=== PATIENT | female | born 1990 | race African-American/Black ===

== ENCOUNTER 2016-12-29 15:35 | Emergency (ER) | payer MEDICAID ==
[~2016-12-29] VITALS: Ht 167.6 cm; Wt 81.6 kg
[~2016-12-29 15:35] MED LIST: ABILIFY5 M1 PO; ADV500/50; ADVAIR DISKUS 51 AER INH; ALBUTEROL1.25 MG/3 NEB; ALL60 PO; ALLEGRA60 MG PO; BACITRACIN500 U/G2 TOP; BACO TOP; BACTROBAN2% TP; BACTROBAN22 TOP; COG1 PO; DULERA1 AR2 INH; HIB240 TP; HIBICLENS118 ML TOP; LATUDA40 M1; LATUDA40 M1 PO; LEVAQUIN750 MG PO; MEDDP PO; NORCO1 TA1 PO; PRE20 PO; PREDNISONE20 MG PO; PROINH INH; PROVENTIL0.09 MG/A1 IH; PROVENTIL0.09 MG/A1 INH; SEROQUEL25 MG PO; SING10 PO; SINGULAIR10 MG PO; SPIRIVA18 MC1 INH; THEOPHYLLINE PO; VENTOLIN H0.09 MG/A1 IH; XOP1.25; [UNRECOGNIZED DRUG - CODE] PO
[2016-12-29 19:22] VITALS: BP 116/63
== END 2016-12-29 19:22 | disposition home or self-care (01) ==
LOC: ED 15:35
DX: J02.9 Acute pharyngitis, unspecified (principal); J45.901 Unspecified asthma with (acute) exacerbation; F41.9 Anxiety disorder, unspecified; F31.9 Bipolar disorder, unspecified; F99 Mental disorder, not otherwise specified; Z91.010 Allergy to peanuts; Z88.6 Allergy status to analgesic agent
CPT/HCPCS: J0696; J7512; J7613; J7644; Q0092

== ENCOUNTER 2017-01-11 13:50 | Emergency (ER) | payer MEDICAID ==
[~2017-01-11] VITALS: Ht 167.6 cm; Wt 89.5 kg
[2017-01-11 16:15] VITALS: BP 114/82
== END 2017-01-11 16:16 | disposition home or self-care (01) ==
LOC: ED 13:50
DX: J45.901 Unspecified asthma with (acute) exacerbation (principal); R06.02 Shortness of breath; Z79.899 Other long term (current) drug therapy; Z88.8 Allergy status to other drugs, medicaments and biological substances
CPT/HCPCS: J1885; J7512; J7613; J7644

== ENCOUNTER 2017-05-23 22:50 | Inpatient (IN) | payer MEDICAID ==
[~2017-05-23] VITALS: Ht 165.1 cm; Wt 72.6 kg
--- NOTE | 2017-05-23 23:15 | NUR ---
LAB AT BEDSIDE FOR BLOOD DRAW.
--- NOTE | 2017-05-23 23:15 | NUR ---
RT AT BEDSIDE FOR BLOOD DRAW.
--- NOTE | 2017-05-23 23:29 | NUR ---
PT TO ED WITH C/O DANIELLE LOWER EXTREMITIES SWELLING AND SOB SINCE 6AM TODAY. PER PT, PT WITH HX OF ASTHMA EXACERBATION WHICH HAS LED TO INTUBATION MULTIPLE TIMES. PT STATES PRIOR TO 6AM ALL WNL. PT A&OX4,NO ACUTE DISTRESS NOTED, RESP EVEN AND UNLABORED AT THIS TIME. PT WITH AUDIBLE WHEEZING NOTED. PT SITTING UP IN BED, ABG AND EKG BEING COMPLETED AT THE BEDSIDE.
[2017-05-23 23:32] LABS: BASOPHIL % 0.4 % (0-2); PLATELET COUNT 265 x10^3mcL (130-400)
[2017-05-23 23:34] LABS: RED CELL DISTRIBUTION WIDTH 15.3 % (11.5-14.5)
[2017-05-23 23:39] LABS: CALCIUM 9.1 mg/dL (8.5-10.1); CARBON DIOXIDE 29.8 mmol/L (21-32); CHLORIDE SERUM 104 mmol/L (98-107); CREATININE SERUM 0.9 mg/dL (0.6-1.0); GFR1 > 60 mL/min; GLUCOSE SERUM 102 mg/dL (74-106); POTASSIUM SERUM 3.1 mmol/L (3.5-5.1); SODIUM SERUM 139 mmol/L (136-145)
--- NOTE | 2017-05-23 23:39 | NUR ---
RT AT BEDSIDE FOR ABG.
--- NOTE | 2017-05-23 23:44 | NUR ---
RT AT BEDSIDE FOR BREATHING TREATMENT.
[2017-05-23 23:46] LABS: ALBUMIN 3.5 g/dL (3.4-5.0); ALKALINE PHOSPHATASE 48 U/L (46-116); ALT/SGPT 13 U/L (14-59); AST/SGOT 11 U/L (15-37); TOTAL PROTEIN, SERUM 7.4 g/dL (6.4-8.2)
[2017-05-24] VITALS (7 sets, daily range): BP systolic 98–117; BP diastolic 49–60
--- NOTE | 2017-05-24 00:24 | NUR ---
PT MEDICATED PER ORDER. SEE EMAR. NO S/S OF ADV RXNS AT THIS TIME.
--- NOTE | 2017-05-24 00:56 | NUR ---
PT REPORT GIVEN TO DONOVAN MONTGOMERY. QUESTIONS AND CONCERNS ADDRESSED.
[2017-05-24] MEDS ORDERED: SINGULAIR4 MG/Packe (01:09)
[2017-05-24] MEDS ORDERED: ALBUTEROL1.25 MG/3 (01:09)
[2017-05-24] MEDS ORDERED: ADV100/50 (01:09)
[2017-05-24] MEDS ORDERED: XOPENEX1.25 MG/3 (01:09)
[2017-05-24] MEDS ORDERED: ALLEGRA ALLERG180 M1 (01:10)
[2017-05-24 01:37] LABS: AMPHETAMINE QUAL UR NONE DETECTED (NEG <=1000)
[2017-05-24 01:38] LABS: UA SPECIFIC GRAVITY 1.025 (1.005-1.035); microscopic required? YES
[2017-05-24 01:39] LABS: urine erythrocyte NEGATIVE (NEGATIVE)
--- NOTE | 2017-05-24 01:50 | NUR ---
RECEIVED PATIENT FROM ED VIA [facility]ERNEY, PATIENT ALERT AND ORIENTED, TELE # 29 SR, IV ACCESS TO LEFT HAND WNL, C/O PAIN TO BLE AND UPPER BACK, WILL MEDICATE ORDERED, ORIENTED PATIENT TO ROOM AND SURROUNDINGS, BED IN LOW POSITION, BED RAILS UP X 2, CALL LIGHT WITHINR EACH, WILL ENDORSE CARE TO PRIMARY NURSE VALENTINA MAN
--- NOTE | 2017-05-24 01:55 | NUR ---
PT IS AAOX4. LUNG SOUNDS HAVE EXPIRATORY WHEEZES ON RA. TELE 29 NSR (98). BOWEL SOUNDS ACTIVE IN ALL 4 QUADS. PULSES PRESENT, NO EDEMA PRESENT. IV IN THE L HAND INFUSING 100 ML/HR NS. BED IN LOWEST POSITION AND CALL LIGHT WITHIN REACH. WILL CONTINUE TO MONITOR.
[2017-05-24 02:15] LABS: MAGNESIUM 1.9 mg/dL (1.8-2.4); PHOSPHOROUS 3.6 mg/dL (2.5-4.9); T3 TOTAL 1.26 ng/mL
[2017-05-24 02:18] LABS: FREE T4 0.96 ng/dL (0.76-1.46); FREE THYROXINE INDEX 3.3 ug/dL (1.4-4.5); T4(THYROXINE) 8.8 ug/dL (4.7-13.3)
--- NOTE | 2017-05-24 05:30 | NUR ---
PT IS SLEEPING COMFORTABLY IN BED. ALL NEEDS HAVE BEEN MET THROUGHOUT THE NIGHT. THE BED IS IN THE LOWEST POSITION AND THE CALL LIGHT IS WITHIN REACH. WILL ENDORSE TO MORNING SHIFT.
[2017-05-24 07:19] LABS: CALCIUM 8.9 mg/dL (8.5-10.1); CARBON DIOXIDE 23.3 mmol/L (21-32); CHLORIDE SERUM 107 mmol/L (98-107); CREATININE SERUM 0.9 mg/dL (0.6-1.0); GFR1 > 60 mL/min; GLUCOSE SERUM 138 mg/dL (74-106); POTASSIUM SERUM 4.4 mmol/L (3.5-5.1); SODIUM SERUM 138 mmol/L (136-145)
--- NOTE | 2017-05-24 08:00 | NUR ---
ALERT/OREINTED TO PERSON/PLACE AND TIME. TELE#29= SR; HR = 94. DENIED CHEST PAIN NOW. BREATHING SOUND CLEAR DANIELLE. O2 SAT 98% ON RA. NO SOB THIS TIME. C/O LEGS SWELLING. NO EDEME SEEN. PEDAL PULSE STRONG PALPABLE. AMBULATORY. TOLERATED CCHO DIET BREAKFAST WELL. NO N/V. NO ABD PAIN. IVF OF NS 100CC/HR INFUSING WELL TO L HAND. IV SITE CLEAN. CALL LIGHT IN REACH.
--- NOTE | 2017-05-24 08:45 | NUR ---
DR. LAN AND MEDICAL TEAM MADE MORNING ROUND. PLAN OF CARE DISCUSSED WITH PATIENT, INCLUDED WITH DR. SCHMIDT CONSULTATION FOR PATIENT'S "ASTHMA". PATIENT C/O LEGS SWELLING. DR. LAN CHECKED PATIENT.
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
--- NOTE | 2017-05-24 15:57 | NUR ---
Nutrition Note Nursing Trigger: Unintentional weight loss >10 lb in past month. Dx: Chest Pain, Asthma PMHx: Asthma, bipolar disorder, depression, anxiety Ht: 65", 5' 5". Wt: 160 lb, 73 kg. BMI: 26.6 kg/m2 (Overweight) Wt Hx: (03/21/14) 163 lb, 74 kg. UBW: 204 lb, 93 kg (6 months ago per pt). Bedscale Wt: 192 lb, 87 kg. New BMI: 31.9 kg/m2 (Obesity Class I) Weight Change: -12 lb; 5.8% weight loss within 6 months due to started working and wanting to lose weight intentionally Labs: BG 138 H; (05/23) AST 11 L, ALT 13 L, A1C 5.8, Hgb 11.6 L Current Diet Order: CCHO-60 gm PO Intakes: (05/24) B: 100% Food Allergies: Peanut Skin: Intact. Scott 21. No pressure injuries noted. Pt found with acute asthma exacerbation per doctor's notes. Per doctor's progress note 05/24, pending Dr. Umanzor consult, bilateral LE edema on admission which has subsided with residual effect, educated about diabetes, A1C 5.8 as pre-diabetic state. Pt was seen resting in bed, stated that she has good PO intakes, no issues at this time. Pt frustrated, stated that she is not diabetic, normally takes prednisone and steroids which causes her BG levels to be elevated. 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 RD provided general, healthful nutrition education to pt, pt appreciative and verbalizes understanding. No further questions asked. Review indicates pt is a LOW risk priority at this time. RD to follow up per nutrition care policy and standards. Please contact RD should nutrition concerns arise earlier than expected follow up date. Pt will be F/U as LOW risk (05/31).
--- NOTE | 2017-05-24 18:31 | NUR ---
CONDITION STABLE. NO RESP DISTRESS ON RA. NO WHEEZING SOUND AUSCULATED. NO EDEMA NOTED. IV SITE CLEAN. ENDORSED CARE TO NOC NURSE.
--- NOTE | 2017-05-24 19:18 | NUR ---
PT IS AAOX4. LUNG SOUNDS ARE CTA ON RA. TELE 29, NSR (87). PT DENIES ANY CP. BOWEL SOUNDS ACTIVE IN ALL 4 QUADRANTS. IV IN THE L HAND INFUSING 100 ML/HR NS. THE BED IS IN THE LOWEST POSITION, CALL LIGHT WITHIN REACH. WILL CONTINUE TO MONITOR.
[2017-05-25 06:01] VITALS: BP 113/59
--- NOTE | 2017-05-25 06:20 | NUR ---
PT IS CURRENTLY RESTING COMFORTABLY. ALL NEEDS HAVE BEEN MET. BED IN LOWEST POSITION AND CALL LIGHT WITHIN REACH. WILL ENDORSE TO MORNING NURSE.
--- NOTE | 2017-05-25 07:45 | NUR ---
PT AWAKE ALERT AND ORIENTED X4, ABLE TO MAKE NEEDS KNOWN. DENIES SOB OR CP AT THIS TIME. TELE 29. PULSES EQUAL BILATERAL NO EDEMA NOTED. LUNGS CTA. BOWEL TONES ACTIVE IN ALL QUADS. DENIES PAIN AT THIS TIME CALL LIGHTIN REACH WILL CONTINUE TO MONITOR.
--- NOTE | 2017-05-25 08:05 | NUR ---
ENTERED PTS ROOM, PT HAVE RAPID EVEN RESPIRATIONS AND AUDIBLE WHEEZES, WHEEZES ALSO HEARD UPON AUSCULTATION . CALLED RT AND ROSELIA IN TO SEE PT. WILL REASSESS.
--- NOTE | 2017-05-25 08:30 | NUR ---
PT RESTING COMFORTABLE IN BED ON RA, LUNGS CLEAR, DENIES SOB. WILL CONTINUE TO MONITOR.
[2017-05-25 08:50] LABS: CALCIUM 9.2 mg/dL (8.5-10.1); CARBON DIOXIDE 24.8 mmol/L (21-32); CHLORIDE SERUM 108 mmol/L (98-107); CREATININE SERUM 0.8 mg/dL (0.6-1.0); GFR1 > 60 mL/min; GLUCOSE SERUM 136 mg/dL (74-106); SODIUM SERUM 140 mmol/L (136-145)
[2017-05-25 08:54] LABS: MAGNESIUM 1.9 mg/dL (1.8-2.4); PHOSPHOROUS 3.9 mg/dL (2.5-4.9)
[2017-05-25] MEDS ORDERED: MEDDP PO (08:59)
[2017-05-25 09:01] VITALS: BP 113/59
[2017-05-25] MEDS ORDERED: THEOCHRON100 MG PO ×2 (09:03→09:19)
[2017-05-25 09:16] VITALS: BP 111/54
[2017-05-25] MEDS ORDERED: FER300 PO (09:19)
[2017-05-25] MEDS ORDERED: BD LACTINEX1.4 MG PO (09:40)
--- NOTE | 2017-05-25 11:14 | NUR ---
DISCHARGE INTRUCTIONS GIVEN TO PT, PT VERBALIZED UNDERSTANDING. IV DC'D CATHETER TIP INTACT. TELE CLEANED AND RETURNED TO MONITOR ROOM. ALL BELONGINGS TAKEN WITH PT. PT MADE AWARE OF NEED TO SCHEDULE FOLLOW UP APPT WITH PCP, AND SCRIPTS SENT TO PHARMACY, PT VERBALIZED UNDERSTANDING. PT ACCOMPANIED DOWN TO LOBBY.
== END 2017-05-25 11:00 | disposition home or self-care (01) | DRG 141 ==
LOC: ED 22:50 → DU 05-24 00:27
PROVIDERS: Emergency Medicine; ADMIT Family Medicine
DX: J45.901 Unspecified asthma with (acute) exacerbation (principal); N17.0 Acute kidney failure with tubular necrosis; N76.0 Acute vaginitis; E87.6 Hypokalemia; R73.03 Prediabetes; D64.9 Anemia, unspecified; F31.9 Bipolar disorder, unspecified; Z68.26 Body mass index [BMI] 26.0-26.9, adult
CPT/HCPCS: 36600; 82962; 83880; 84439; 94150; J2270; J2405; J2930; J3010; J7030; J7613; J7620; Q0092

== ENCOUNTER 2017-09-02 22:30 | Emergency (ER) | payer MEDICAID ==
[~2017-09-02 22:30] MED LIST changes: +ADV100/50; +ALBUTEROL1.25 MG/3; +ALLEGRA ALLERG180 M1; +BD LACTINEX1.4 MG PO; +FER300 PO; +SINGULAIR4 MG/Packe; +THEOCHRON100 MG PO; +XOPENEX1.25 MG/3
[2017-09-03 01:12] VITALS: BP 100/62
== END 2017-09-03 01:12 | disposition home or self-care (01) ==
LOC: ED 22:30
DX: R10.84 Generalized abdominal pain (principal); Z88.8 Allergy status to other drugs, medicaments and biological substances; Z91.010 Allergy to peanuts; R11.0 Nausea

== ENCOUNTER 2017-10-07 20:10 | Emergency (ER) | payer MEDICAID ==
[~2017-10-07] VITALS: Ht 167.6 cm; Wt 83.5 kg
[2017-10-07 20:36] VITALS: BP 117/65; Ht 167.6 cm; Wt 83.5 kg
== END 2017-10-07 23:10 | disposition home or self-care (01) ==
LOC: ED 20:10
DX: M54.12 Radiculopathy, cervical region (principal)

== ENCOUNTER 2017-10-14 22:49 | Emergency (ER) | payer MEDICAID ==
[2017-10-15 00:18] LABS: BASOPHIL % 0.6 % (0-2); PLATELET COUNT 262 x10^3mcL (130-400); RED CELL DISTRIBUTION WIDTH 14.5 % (11.5-14.5)
[2017-10-15 00:37] LABS: CALCIUM 8.4 mg/dL (8.5-10.1); CARBON DIOXIDE 24.2 mmol/L (21-32); CHLORIDE SERUM 107 mmol/L (98-107); CREATININE SERUM 0.9 mg/dL (0.6-1.0); GFR1 > 60 mL/min; GLUCOSE SERUM 88 mg/dL (74-106); POTASSIUM SERUM 3.5 mmol/L (3.5-5.1); SODIUM SERUM 141 mmol/L (136-145)
[2017-10-15 00:41] LABS: ALKALINE PHOSPHATASE 37 U/L (46-116); ALT/SGPT 24 U/L (14-59); AST/SGOT 15 U/L (15-37); BILIRUBIN TOTAL 0.1 mg/dL (0.20-1.00); TOTAL PROTEIN, SERUM 6.4 g/dL (6.4-8.2)
[2017-10-15 00:42] LABS: ALBUMIN 3.2 g/dL (3.4-5.0)
[2017-10-15 01:54] VITALS: BP 117/71
== END 2017-10-15 01:56 | disposition home or self-care (01) ==
LOC: ED 22:49
PROVIDERS: Emergency Medicine
DX: J45.901 Unspecified asthma with (acute) exacerbation (principal); R07.89 Other chest pain; Z88.8 Allergy status to other drugs, medicaments and biological substances; Z91.010 Allergy to peanuts
CPT/HCPCS: 36600; 83880; J2930; J7030; J7613; Q0092

== ENCOUNTER 2017-11-17 22:11 | Emergency (ER) | payer MEDICAID ==
[~2017-11-17] VITALS: Ht 165.1 cm; Wt 68.0 kg
[2017-11-17 22:12] VITALS: Ht 165.1 cm; Wt 68.0 kg
[2017-11-18 00:38] VITALS: BP 122/70
== END 2017-11-18 00:38 | disposition home or self-care (01) ==
LOC: ED 22:11
DX: J45.901 Unspecified asthma with (acute) exacerbation (principal); Z76.0 Encounter for issue of repeat prescription; J45.909 Unspecified asthma, uncomplicated; Z88.8 Allergy status to other drugs, medicaments and biological substances; Z91.010 Allergy to peanuts
CPT/HCPCS: J7512; J7613; J7644

== ENCOUNTER 2017-12-19 19:23 | Emergency (ER) | payer MEDICAID ==
[~2017-12-19] VITALS: Ht 165.1 cm; Wt 81.2 kg
[2017-12-19 19:28] VITALS: Ht 165.1 cm; Wt 81.2 kg
[2017-12-19 20:46] LABS: BASOPHIL % 0.9 % (0-2); PLATELET COUNT 246 x10^3mcL (130-400); RED CELL DISTRIBUTION WIDTH 14.3 % (11.5-14.5)
[2017-12-19 20:52] LABS: CALCIUM 8.7 mg/dL (8.5-10.1); CARBON DIOXIDE 23.3 mmol/L (21-32); CHLORIDE SERUM 102 mmol/L (98-107); GFR1 > 60 mL/min; GLUCOSE SERUM 97 mg/dL (74-106); POTASSIUM SERUM 3.5 mmol/L (3.5-5.1); SODIUM SERUM 136 mmol/L (136-145)
[2017-12-19 20:56] LABS: ALBUMIN 3.4 g/dL (3.4-5.0); ALKALINE PHOSPHATASE 38 U/L (46-116); ALT/SGPT 34 U/L (14-59); AST/SGOT 25 U/L (15-37); BILIRUBIN TOTAL 0.1 mg/dL (0.20-1.00); TOTAL PROTEIN, SERUM 7.3 g/dL (6.4-8.2)
[2017-12-19 22:43] VITALS: BP 116/64
== END 2017-12-19 22:43 | disposition home or self-care (01) ==
LOC: ED 19:23
PROVIDERS: Emergency Medicine
DX: J11.1 Influenza due to unidentified influenza virus with other respiratory manifestations (principal); J45.901 Unspecified asthma with (acute) exacerbation; Z91.010 Allergy to peanuts
CPT/HCPCS: J2930; J7613; J7644; Q0092

== ENCOUNTER 2017-12-23 19:36 | Emergency (ER) | payer MEDICAID ==
[~2017-12-23] VITALS: Ht 167.6 cm; Wt 82.1 kg
[2017-12-23 20:19] VITALS: Ht 167.6 cm; Wt 82.1 kg
[2017-12-24 00:14] VITALS: BP 110/65
== END 2017-12-24 00:15 | disposition home or self-care (01) ==
LOC: ED 19:36
DX: J20.9 Acute bronchitis, unspecified (principal); N76.0 Acute vaginitis; R30.0 Dysuria; J45.909 Unspecified asthma, uncomplicated; Z88.8 Allergy status to other drugs, medicaments and biological substances; Z91.010 Allergy to peanuts
CPT/HCPCS: 87491; 87591; J0696; J7620; Q0092

== ENCOUNTER 2018-02-18 22:22 | Emergency (ER) | payer MEDICAID ==
[~2018-02-18] VITALS: Ht 167.6 cm; Wt 84.8 kg
[2018-02-18 22:29] VITALS: Ht 167.6 cm; Wt 84.8 kg
[2018-02-19 03:15] VITALS: BP 117/63
== END 2018-02-19 03:15 | disposition home or self-care (01) ==
LOC: ED 22:22
DX: B37.3 Candidiasis of vulva and vagina (principal); J45.909 Unspecified asthma, uncomplicated; Z88.8 Allergy status to other drugs, medicaments and biological substances; Z91.010 Allergy to peanuts
CPT/HCPCS: J2270; J2930; J7030; J7613

== ENCOUNTER 2018-03-01 20:43 | Emergency (ER) | payer MEDICAID ==
[~2018-03-01] VITALS: Ht 167.6 cm; Wt 86.2 kg
[2018-03-01 20:47] VITALS: Ht 167.6 cm; Wt 86.2 kg
[2018-03-01 22:21] LABS: BASOPHIL % 1.3 % (0-2); PLATELET COUNT 295 x10^3mcL (130-400); RED CELL DISTRIBUTION WIDTH 13.8 % (11.5-14.5)
[2018-03-01 23:08] LABS: CALCIUM 8.2 mg/dL (8.5-10.1); CHLORIDE SERUM 105 mmol/L (98-107); GFR1 > 60 mL/min; GLUCOSE SERUM 93 mg/dL (74-106); POTASSIUM SERUM 3.9 mmol/L (3.5-5.1); SODIUM SERUM 141 mmol/L (136-145)
[2018-03-01 23:22] LABS: ALBUMIN 2.8 g/dL (3.4-5.0); ALT/SGPT 23 U/L (14-59); AST/SGOT 12 U/L (15-37); BILIRUBIN TOTAL 0.1 mg/dL (0.20-1.00); TOTAL PROTEIN, SERUM 8.2 g/dL (6.4-8.2)
[2018-03-01 23:23] LABS: ALKALINE PHOSPHATASE 51 U/L (46-116); LIPASE 137 IU/L (73-393)
[2018-03-02 00:44] VITALS: BP 117/68
== END 2018-03-02 00:44 | disposition home or self-care (01) ==
LOC: ED 20:43
PROVIDERS: Emergency Medicine
DX: K59.00 Constipation, unspecified (principal); R60.0 Localized edema; R11.0 Nausea; J45.909 Unspecified asthma, uncomplicated; Z88.8 Allergy status to other drugs, medicaments and biological substances; Z91.010 Allergy to peanuts
CPT/HCPCS: 36415; 85378

== ENCOUNTER 2018-05-01 12:22 | Emergency (ER) | payer MEDICAID ==
[~2018-05-01] VITALS: Ht 167.6 cm; Wt 83.9 kg
[2018-05-01 12:26] VITALS: Ht 167.6 cm; Wt 83.9 kg
[2018-05-01 12:53] LABS: RED CELL DISTRIBUTION WIDTH 14.5 % (11.5-14.5)
[2018-05-01 13:03] LABS: CALCIUM 9.2 mg/dL (8.5-10.1); CARBON DIOXIDE 25.3 mmol/L (21-32); CHLORIDE SERUM 106 mmol/L (98-107); CREATININE SERUM 1.1 mg/dL (0.6-1.0); GFR1 > 60 mL/min; GLUCOSE SERUM 119 mg/dL (74-106); POTASSIUM SERUM 3.4 mmol/L (3.5-5.1); SODIUM SERUM 138 mmol/L (136-145)
[2018-05-01 13:07] LABS: ALBUMIN 3.4 g/dL (3.4-5.0); ALKALINE PHOSPHATASE 47 U/L (46-116); ALT/SGPT 19 U/L (14-59); AST/SGOT 19 U/L (15-37); BILIRUBIN TOTAL 0.25 mg/dL (0.20-1.00); TOTAL PROTEIN, SERUM 7.1 g/dL (6.4-8.2)
[2018-05-01 13:16] LABS: PLATELET COUNT 266 x10^3mcL (130-400)
[2018-05-01 15:37] VITALS: BP 100/67
== END 2018-05-01 15:37 | disposition home or self-care (01) ==
LOC: ED 12:22
PROVIDERS: Specialist
DX: J45.901 Unspecified asthma with (acute) exacerbation (principal); Z91.010 Allergy to peanuts; Z88.8 Allergy status to other drugs, medicaments and biological substances
CPT/HCPCS: J0171; J3475; J7030; J7613; J7620; J7644

== ENCOUNTER 2018-05-11 14:24 | Emergency (ER) | payer MEDICAID ==
[~2018-05-11] VITALS: Ht 167.6 cm; Wt 81.6 kg
[2018-05-11 14:28] VITALS: Ht 167.6 cm; Wt 81.6 kg
[2018-05-11 15:06] LABS: BASOPHIL % 0.9 % (0-2); PLATELET COUNT 272 x10^3mcL (130-400); RED CELL DISTRIBUTION WIDTH 14.5 % (11.5-14.5)
[2018-05-11 15:14] LABS: CALCIUM 8.9 mg/dL (8.5-10.1); CARBON DIOXIDE 22.8 mmol/L (21-32); CREATININE SERUM 1.2 mg/dL (0.6-1.0); POTASSIUM SERUM 3.7 mmol/L (3.5-5.1)
[2018-05-11 16:34] VITALS: BP 118/66
== END 2018-05-11 17:01 | disposition home or self-care (01) ==
LOC: ED 14:24
PROVIDERS: Emergency Medicine
DX: J45.901 Unspecified asthma with (acute) exacerbation (principal); F41.9 Anxiety disorder, unspecified; F32.9 Major depressive disorder, single episode, unspecified; Z88.8 Allergy status to other drugs, medicaments and biological substances; Z91.010 Allergy to peanuts
CPT/HCPCS: J0461; J2930; J3010; J3475; J7030; J7613; J7644; Q0092

== ENCOUNTER 2018-07-25 08:19 | Emergency (ER) | payer MEDICAID ==
[~2018-07-25] VITALS: Ht 167.6 cm; Wt 83.5 kg
[2018-07-25 08:20] VITALS: Ht 167.6 cm; Wt 83.5 kg
[2018-07-25 10:45] VITALS: BP 103/48
== END 2018-07-25 10:47 | disposition home or self-care (01) ==
LOC: ED 08:19
DX: J45.901 Unspecified asthma with (acute) exacerbation (principal); F41.9 Anxiety disorder, unspecified; F32.9 Major depressive disorder, single episode, unspecified; F31.9 Bipolar disorder, unspecified; Z88.8 Allergy status to other drugs, medicaments and biological substances; Z91.010 Allergy to peanuts
CPT/HCPCS: J7512; J7613

== ENCOUNTER 2018-09-19 08:07 | Emergency (ER) | payer MEDICAID ==
[~2018-09-19] VITALS: Ht 167.6 cm; Wt 84.1 kg
[2018-09-19 08:10] VITALS: Ht 167.6 cm; Wt 84.1 kg
[2018-09-19 09:16] LABS: BASOPHIL % 0.7 % (0-2); PLATELET COUNT 263 x10^3mcL (130-400); RED CELL DISTRIBUTION WIDTH 14.5 % (11.5-14.5)
[2018-09-19 09:21] LABS: CALCIUM 8.9 mg/dL (8.5-10.1); CARBON DIOXIDE 25.3 mmol/L (21-32); CHLORIDE SERUM 103 mmol/L (98-107); CREATININE SERUM 1.1 mg/dL (0.6-1.0); GFR1 > 60 mL/min; GLUCOSE SERUM 80 mg/dL (74-106); POTASSIUM SERUM 3.9 mmol/L (3.5-5.1); SODIUM SERUM 139 mmol/L (136-145)
[2018-09-19 09:26] LABS: ALBUMIN 3.6 g/dL (3.4-5.0); ALKALINE PHOSPHATASE 54 U/L (46-116); ALT/SGPT 17 U/L (14-59); AST/SGOT 15 U/L (15-37); BILIRUBIN TOTAL 0.2 mg/dL (0.20-1.00); TOTAL PROTEIN, SERUM 7.9 g/dL (6.4-8.2)
[2018-09-19 10:56] VITALS: BP 117/62
== END 2018-09-19 10:56 | disposition home or self-care (01) ==
LOC: ED 08:07
PROVIDERS: Emergency Medicine
DX: J45.901 Unspecified asthma with (acute) exacerbation (principal); R06.03 Acute respiratory distress; F31.9 Bipolar disorder, unspecified; Z88.8 Allergy status to other drugs, medicaments and biological substances; Z91.010 Allergy to peanuts
CPT/HCPCS: J2930; J3475; J7030; J7613

== ENCOUNTER 2018-10-04 07:42 | Inpatient (IN) | payer MEDICAID ==
[~2018-10-04] VITALS: Ht 167.6 cm; Wt 84.6 kg
[2018-10-04 07:46] VITALS: Ht 167.6 cm; Wt 84.6 kg
[2018-10-04 08:24] LABS: BASOPHIL % 0.6 % (0-2); PLATELET COUNT 239 x10^3mcL (130-400)
[2018-10-04 08:25] LABS: RED CELL DISTRIBUTION WIDTH 14.6 % (11.5-14.5)
[2018-10-04 08:28] LABS: CALCIUM 9.1 mg/dL (8.5-10.1); CARBON DIOXIDE 24.8 mmol/L (21-32); CHLORIDE SERUM 105 mmol/L (98-107); GFR1 > 60 mL/min; GLUCOSE SERUM 89 mg/dL (74-106); POTASSIUM SERUM 4.3 mmol/L (3.5-5.1); SODIUM SERUM 138 mmol/L (136-145)
[2018-10-04 08:33] LABS: ALBUMIN 3.6 g/dL (3.4-5.0); ALKALINE PHOSPHATASE 52 U/L (46-116); ALT/SGPT 23 U/L (14-59); AST/SGOT 25 U/L (15-37); BILIRUBIN TOTAL 0.2 mg/dL (0.20-1.00); TOTAL PROTEIN, SERUM 7.8 g/dL (6.4-8.2)
[2018-10-04] MEDS ORDERED: PROAIR HFA8.5 GM (09:25)
[2018-10-04] MEDS ORDERED: SYMBICORT1 AE3 (09:26)
[2018-10-04 11:46] LABS: MAGNESIUM 1.9 mg/dL (1.8-2.4); PHOSPHOROUS 3.7 mg/dL (2.5-4.9)
[2018-10-04 11:47] LABS: CHOLESTEROL/HDL RATIO 2.6
[2018-10-04 12:13] VITALS: BP 110/60
[2018-10-04 15:11] VITALS: BP 110/60
[2018-10-04 17:37] VITALS: BP 107/51
[2018-10-04 18:37] LABS: microscopic required? NO
[2018-10-04 19:02] LABS: UA SPECIFIC GRAVITY 1.015 (1.005-1.035); urine erythrocyte NEGATIVE (NEGATIVE)
[2018-10-04 20:44] VITALS: BP 115/67
[2018-10-05 05:25] VITALS: BP 105/54
[2018-10-05 06:45] LABS: CALCIUM 9.1 mg/dL (8.5-10.1); CARBON DIOXIDE 22.2 mmol/L (21-32); CHLORIDE SERUM 107 mmol/L (98-107); CREATININE SERUM 0.9 mg/dL (0.6-1.0); GFR1 > 60 mL/min; GLUCOSE SERUM 145 mg/dL (74-106); POTASSIUM SERUM 4.3 mmol/L (3.5-5.1); SODIUM SERUM 137 mmol/L (136-145)
[2018-10-05 08:53] VITALS: BP 102/48
[2018-10-05 09:13] LABS: PLATELET COUNT 277 x10^3mcL (130-400)
[2018-10-05 09:20] LABS: BASOPHIL % 0 % (0-2)
[2018-10-05] MEDS ORDERED: PRE20 PO (09:41)
[2018-10-05] MEDS ORDERED: PREDNISONE20 MG PO (09:41)
[2018-10-05] MEDS ORDERED: SINGULAIR4 MG/Packe PO (09:44)
[2018-10-05 10:25] VITALS: BP 102/48
== END 2018-10-05 11:46 | disposition home or self-care (01) | DRG 141 ==
LOC: ED 07:42 → DU 10:21
PROVIDERS: Emergency Medicine; ADMIT Internal Medicine
DX: J45.21 Mild intermittent asthma with (acute) exacerbation (principal); E66.9 Obesity, unspecified; R06.03 Acute respiratory distress; J20.9 Acute bronchitis, unspecified; F31.30 Bipolar disorder, current episode depressed, mild or moderate severity, unspecified; Z87.891 Personal history of nicotine dependence; Z91.14 Patient's other noncompliance with medication regimen; Z68.29 Body mass index [BMI] 29.0-29.9, adult
CPT/HCPCS: 85378; 87804; 94150; J0171; J0696; J1644; J1885; J2920; J2930; J3475; J7030; J7613; J7620; J7626; J7644; Q0092

== ENCOUNTER 2018-10-20 18:13 | Emergency (ER) | payer MEDICAID ==
[~2018-10-20] VITALS: Ht 167.6 cm; Wt 88.9 kg
[~2018-10-20 18:13] MED LIST changes: +PROAIR HFA8.5 GM; +SINGULAIR4 MG/Packe PO; +SYMBICORT1 AE3
[2018-10-20 18:23] VITALS: Ht 167.6 cm; Wt 88.9 kg
[2018-10-20 20:48] LABS: urine erythrocyte NEGATIVE (NEGATIVE)
[2018-10-20 20:57] LABS: microscopic required? YES
[2018-10-20 22:14] VITALS: BP 134/76
== END 2018-10-20 22:14 | disposition home or self-care (01) ==
LOC: ED 18:13
PROVIDERS: Emergency Medicine
DX: N76.0 Acute vaginitis (principal); J45.909 Unspecified asthma, uncomplicated; F41.9 Anxiety disorder, unspecified; F31.9 Bipolar disorder, unspecified; M79.89 Other specified soft tissue disorders; Z91.010 Allergy to peanuts; Z88.8 Allergy status to other drugs, medicaments and biological substances
CPT/HCPCS: 87491; 87591

== ENCOUNTER 2018-11-24 09:41 | Inpatient (IN) | payer MEDICAID ==
[~2018-11-24] VITALS: Ht 167.6 cm; Wt 88.9 kg
[2018-11-24 11:01] LABS: BASOPHIL % 0.4 % (0-2); PLATELET COUNT 306 x10^3mcL (130-400)
[2018-11-24 11:15] LABS: CALCIUM 8.8 mg/dL (8.5-10.1); CARBON DIOXIDE 26.3 mmol/L (21-32); CHLORIDE SERUM 105 mmol/L (98-107); CREATININE SERUM 1.1 mg/dL (0.6-1.0); GFR1 > 60 mL/min; GLUCOSE SERUM 85 mg/dL (74-106); POTASSIUM SERUM 3.7 mmol/L (3.5-5.1); SODIUM SERUM 139 mmol/L (136-145)
[2018-11-24 11:20] LABS: ALBUMIN 3.6 g/dL (3.4-5.0); ALKALINE PHOSPHATASE 52 U/L (46-116); ALT/SGPT 23 U/L (14-59); AST/SGOT 17 U/L (15-37); BILIRUBIN TOTAL 0.2 mg/dL (0.20-1.00); TOTAL PROTEIN, SERUM 7.6 g/dL (6.4-8.2)
[2018-11-24 11:23] LABS: RED CELL DISTRIBUTION WIDTH 15.3 % (11.5-14.5)
[2018-11-24 14:34] VITALS: BP 97/54
[2018-11-24 14:39] LABS: microscopic required? NO
[2018-11-24 14:51] LABS: UA SPECIFIC GRAVITY <=1.005 (1.005-1.035); urine erythrocyte NEGATIVE (NEGATIVE)
[2018-11-24 15:50] VITALS: BP 97/54
[2018-11-24 17:21] VITALS: BP 98/52
[2018-11-24 21:00] VITALS: BP 120/54
[2018-11-25 04:59] VITALS: BP 113/52
[2018-11-25] MEDS ORDERED: ALBUTEROL1.25 MG/3 NEB (08:47)
[2018-11-25] MEDS ORDERED: SYMBICORT1 AE3 INH (08:47)
[2018-11-25] MEDS ORDERED: ZITHROMAX500 MG PO (08:47)
[2018-11-25] MEDS ORDERED: PROAIR HFA8.5 GM IH (08:47)
[2018-11-25] MEDS ORDERED: PREDNISONE50 MG PO (08:48)
[2018-11-25] MEDS ORDERED: AEROECLIPSE II1 EACH MC (08:48)
[2018-11-25 09:05] VITALS: BP 110/55
[2018-11-25 10:50] VITALS: BP 110/55
== END 2018-11-25 11:10 | disposition home or self-care (01) | DRG 141 ==
LOC: ED 09:41 → DU 11:10
PROVIDERS: Emergency Medicine; ADMIT Internal Medicine
DX: J45.901 Unspecified asthma with (acute) exacerbation (principal); D72.829 Elevated white blood cell count, unspecified; F31.30 Bipolar disorder, current episode depressed, mild or moderate severity, unspecified; E66.9 Obesity, unspecified
CPT/HCPCS: C9113; J0132; J0456; J1650; J2920; J2930; J7030; J7613; J7620; J7644; Q0092

== ENCOUNTER 2018-12-29 08:32 | Emergency (ER) | payer MEDICAID ==
[~2018-12-29] VITALS: Ht 167.6 cm; Wt 88.9 kg
[~2018-12-29 08:32] MED LIST changes: +AEROECLIPSE II1 EACH MC; +PREDNISONE50 MG PO; +PROAIR HFA8.5 GM IH; +SYMBICORT1 AE3 INH; +ZITHROMAX500 MG PO
[2018-12-29 08:58] VITALS: Ht 167.6 cm; Wt 88.9 kg
[2018-12-29 09:46] LABS: BASOPHIL % 1.6 % (0-2); PLATELET COUNT 258 x10^3mcL (130-400)
[2018-12-29 09:47] LABS: microscopic required? NO
[2018-12-29 09:48] LABS: RED CELL DISTRIBUTION WIDTH 15.9 % (11.5-14.5)
[2018-12-29 09:53] LABS: ALBUMIN 3.5 g/dL (3.4-5.0); ALKALINE PHOSPHATASE 50 U/L (46-116); ALT/SGPT 21 U/L (14-59); AMYLASE 84 U/L (25-115); AST/SGOT 17 U/L (15-37); BILIRUBIN TOTAL 0.33 mg/dL (0.20-1.00); CALCIUM 8.5 mg/dL (8.5-10.1); CARBON DIOXIDE 25.6 mmol/L (21-32); CHLORIDE SERUM 106 mmol/L (98-107); CREATININE SERUM 0.9 mg/dL (0.6-1.0); GFR1 > 60 mL/min; GLUCOSE SERUM 81 mg/dL (74-106); LIPASE 109 IU/L (73-393); POTASSIUM SERUM 4.1 mmol/L (3.5-5.1); SODIUM SERUM 136 mmol/L (136-145); TOTAL PROTEIN, SERUM 7.3 g/dL (6.4-8.2)
[2018-12-29 09:56] LABS: urine erythrocyte NEGATIVE (NEGATIVE)
[2018-12-29 11:02] VITALS: BP 132/66
== END 2018-12-29 11:02 | disposition home or self-care (01) ==
LOC: ED 08:32
PROVIDERS: Emergency Medicine
DX: N76.0 Acute vaginitis (principal); Z88.8 Allergy status to other drugs, medicaments and biological substances; Z91.010 Allergy to peanuts; J45.909 Unspecified asthma, uncomplicated; F31.9 Bipolar disorder, unspecified
CPT/HCPCS: 36415; 83880; 87491; 87591; J1885

== ENCOUNTER 2019-01-05 17:58 | Inpatient (IN) | payer MEDICAID ==
[~2019-01-05] VITALS: Ht 167.6 cm; Wt 89.4 kg
[2019-01-05 18:04] VITALS: Ht 167.6 cm; Wt 89.4 kg
[2019-01-05 21:05] LABS: BASOPHIL % 0.8 % (0-2); PLATELET COUNT 240 x10^3mcL (130-400)
[2019-01-05 21:08] LABS: RED CELL DISTRIBUTION WIDTH 16.6 % (11.5-14.5)
[2019-01-05 21:22] LABS: ALKALINE PHOSPHATASE 43 U/L (46-116); ALT/SGPT 19 U/L (14-59); AST/SGOT 17 U/L (15-37); BILIRUBIN TOTAL 0.2 mg/dL (0.20-1.00); CALCIUM 8.2 mg/dL (8.5-10.1); CARBON DIOXIDE 22.8 mmol/L (21-32); CHLORIDE SERUM 108 mmol/L (98-107); CHOLESTEROL 164 mg/dL (<200); CREATININE SERUM 0.9 mg/dL (0.6-1.0); GFR1 > 60 mL/min; GLUCOSE SERUM 97 mg/dL (74-106); MAGNESIUM 2.5 mg/dL (1.8-2.4); PHOSPHOROUS 3.2 mg/dL (2.5-4.9); POTASSIUM SERUM 3.6 mmol/L (3.5-5.1); SODIUM SERUM 141 mmol/L (136-145); TRIGLYCERIDES 37 mg/dL (<150)
[2019-01-05 21:24] LABS: ALBUMIN 3.3 g/dL (3.4-5.0); CHOLESTEROL/HDL RATIO 2.3; HDL CHOLESTEROL 70 mg/dL (40-60)
[2019-01-05 21:31] LABS: T3 TOTAL 1.32 ng/mL
[2019-01-05 21:36] LABS: FREE T4 0.89 ng/dL (0.76-1.46); FREE THYROXINE INDEX 2.2 ug/dL (1.4-4.5); T4(THYROXINE) 6.6 ug/dL (4.7-13.3)
[2019-01-05 22:02] VITALS: BP 126/63
[2019-01-06 05:51] VITALS: BP 108/57
[2019-01-06 06:12] LABS: PLATELET COUNT 269 x10^3mcL (130-400)
[2019-01-06 06:28] LABS: BASOPHIL % 0 % (0-2); CALCIUM 8.7 mg/dL (8.5-10.1); CARBON DIOXIDE 21.3 mmol/L (21-32); CHLORIDE SERUM 107 mmol/L (98-107); GFR1 > 60 mL/min; GLUCOSE SERUM 161 mg/dL (74-106); POTASSIUM SERUM 4.4 mmol/L (3.5-5.1); RED CELL DISTRIBUTION WIDTH 16.6 % (11.5-14.5); SODIUM SERUM 138 mmol/L (136-145)
[2019-01-06 09:46] VITALS: BP 107/56
[2019-01-06] MEDS ORDERED: ADVAIR HFA 230/1 AER IH (10:31)
[2019-01-06] MEDS ORDERED: PREDNISONE20 MG PO ×2 (10:37→10:46)
[2019-01-06 11:06] LABS: microscopic required? NO
[2019-01-06 11:07] LABS: urine erythrocyte NEGATIVE (NEGATIVE)
[2019-01-06 11:48] LABS: AMPHETAMINE QUAL UR NONE DETECTED (See below)
[2019-01-06 12:24] VITALS: BP 107/56
== END 2019-01-06 12:55 | disposition home or self-care (01) | DRG 141 ==
LOC: ED 17:58 → MU 20:26 → DU 20:26 → MU 01-06 09:57
PROVIDERS: ADMIT Family Medicine
DX: J45.901 Unspecified asthma with (acute) exacerbation (principal); E44.1 Mild protein-calorie malnutrition; F31.9 Bipolar disorder, unspecified; F41.9 Anxiety disorder, unspecified; R06.03 Acute respiratory distress; E83.41 Hypermagnesemia; E66.9 Obesity, unspecified; Z68.31 Body mass index [BMI] 31.0-31.9, adult
CPT/HCPCS: 83880; 84439; J1200; J2920; J2930; J3475; J7613; J7620; Q0092

== ENCOUNTER 2019-01-31 20:57 | Emergency (ER) | payer MEDICAID ==
[~2019-01-31] VITALS: Ht 167.6 cm; Wt 88.9 kg
[~2019-01-31 20:57] MED LIST changes: +ADVAIR HFA 230/1 AER IH
[2019-01-31 21:24] VITALS: Ht 167.6 cm; Wt 88.9 kg
[2019-01-31 22:15] VITALS: BP 109/66
== END 2019-01-31 22:15 | disposition home or self-care (01) ==
LOC: ED 20:57
DX: L30.9 Dermatitis, unspecified (principal); J45.909 Unspecified asthma, uncomplicated; F31.9 Bipolar disorder, unspecified; Z91.010 Allergy to peanuts; Z88.8 Allergy status to other drugs, medicaments and biological substances
CPT/HCPCS: J1200

== ENCOUNTER 2019-03-07 15:45 | Emergency (ER) | payer MEDICAID ==
[~2019-03-07] VITALS: Ht 167.6 cm; Wt 88.0 kg
[2019-03-07 15:54] VITALS: Ht 167.6 cm; Wt 88.0 kg
[2019-03-07 17:44] VITALS: BP 100/58
== END 2019-03-07 17:44 | disposition home or self-care (01) ==
LOC: ED 15:45
DX: H10.89 Other conjunctivitis (principal); J45.909 Unspecified asthma, uncomplicated; F41.9 Anxiety disorder, unspecified; F31.9 Bipolar disorder, unspecified; Z98.890 Other specified postprocedural states; Z91.010 Allergy to peanuts; Z88.8 Allergy status to other drugs, medicaments and biological substances

== ENCOUNTER 2019-04-19 09:23 | Emergency (ER) | payer MEDICAID ==
[~2019-04-19] VITALS: Ht 167.6 cm; Wt 85.3 kg
[2019-04-19 09:27] VITALS: Ht 167.6 cm; Wt 85.3 kg
[2019-04-19 10:58] VITALS: BP 93/56
== END 2019-04-19 10:58 | disposition home or self-care (01) ==
LOC: ED 09:23
DX: K59.00 Constipation, unspecified (principal); G43.909 Migraine, unspecified, not intractable, without status migrainosus; J45.909 Unspecified asthma, uncomplicated; F31.9 Bipolar disorder, unspecified; Z98.890 Other specified postprocedural states; Z91.010 Allergy to peanuts; Z88.8 Allergy status to other drugs, medicaments and biological substances
CPT/HCPCS: J0780; J1885

== ENCOUNTER 2019-05-21 01:08 | Emergency (ER) | payer OTHER ==
[~2019-05-21] VITALS: Ht 165.1 cm; Wt 84.8 kg
[2019-05-21 01:23] VITALS: Ht 165.1 cm; Wt 84.8 kg
[2019-05-21 02:17] LABS: BASOPHIL % 0.7 % (0-2); PLATELET COUNT 253 x10^3mcL (130-400)
[2019-05-21 02:24] LABS: RED CELL DISTRIBUTION WIDTH 15.1 % (11.5-14.5)
[2019-05-21 03:46] VITALS: BP 132/86
== END 2019-05-21 03:46 | disposition home or self-care (01) ==
LOC: ED 01:08
PROVIDERS: Emergency Medicine
DX: O26.891 Other specified pregnancy related conditions, first trimester (principal); J45.909 Unspecified asthma, uncomplicated; F31.9 Bipolar disorder, unspecified; R10.30 Lower abdominal pain, unspecified; R11.0 Nausea; Z91.010 Allergy to peanuts; Z98.890 Other specified postprocedural states; Z88.1 Allergy status to other antibiotic agents
CPT/HCPCS: 36415

== ENCOUNTER 2019-06-13 15:37 | Emergency (ER) | payer OTHER ==
[~2019-06-13] VITALS: Ht 165.1 cm; Wt 85.3 kg
[2019-06-13 15:50] VITALS: Ht 165.1 cm; Wt 85.3 kg
[2019-06-13 19:15] VITALS: BP 102/62
== END 2019-06-13 19:15 | disposition home or self-care (01) ==
LOC: ED 15:37
DX: O20.0 Threatened abortion (principal); J45.909 Unspecified asthma, uncomplicated; F41.9 Anxiety disorder, unspecified; Z88.8 Allergy status to other drugs, medicaments and biological substances; Z98.890 Other specified postprocedural states; Z91.010 Allergy to peanuts
CPT/HCPCS: 36415

== ENCOUNTER 2019-06-21 14:11 | Emergency (ER) | payer OTHER ==
[~2019-06-21] VITALS: Ht 165.1 cm; Wt 83.9 kg
[2019-06-21 14:28] VITALS: Ht 165.1 cm; Wt 83.9 kg
[2019-06-21 15:14] LABS: BASOPHIL % 0.4 % (0-2); PLATELET COUNT 286 x10^3mcL (130-400)
[2019-06-21 15:15] LABS: RED CELL DISTRIBUTION WIDTH 14.8 % (11.5-14.5)
[2019-06-21 15:19] LABS: CALCIUM 8.7 mg/dL (8.5-10.1); CARBON DIOXIDE 24.6 mmol/L (21-32); CHLORIDE SERUM 107 mmol/L (98-107); CREATININE SERUM 0.9 mg/dL (0.6-1.0); GFR1 > 60 mL/min; GLUCOSE SERUM 90 mg/dL (74-106); POTASSIUM SERUM 3.9 mmol/L (3.5-5.1); SODIUM SERUM 141 mmol/L (136-145)
[2019-06-21 18:49] VITALS: BP 100/70
== END 2019-06-21 18:49 | disposition home or self-care (01) ==
LOC: ED 14:11
PROVIDERS: Emergency Medicine
DX: O03.9 Complete or unspecified spontaneous abortion without complication (principal); O99.511 Diseases of the respiratory system complicating pregnancy, first trimester; F31.9 Bipolar disorder, unspecified; Z98.890 Other specified postprocedural states; Z88.8 Allergy status to other drugs, medicaments and biological substances; Z91.010 Allergy to peanuts
CPT/HCPCS: 36415; 87491; 87591; J7512

== ENCOUNTER 2019-11-26 03:30 | Emergency (ER) | payer OTHER ==
[~2019-11-26] VITALS: Ht 165.1 cm; Wt 81.6 kg
[2019-11-26 03:44] VITALS: Ht 165.1 cm; Wt 81.6 kg
[2019-11-26 06:26] VITALS: BP 112/60
== END 2019-11-26 06:26 | disposition home or self-care (01) ==
LOC: ED 03:30
DX: J45.901 Unspecified asthma with (acute) exacerbation (principal)
CPT/HCPCS: J2270; J2930; J3475; J7613; Q0092; Q9967

== ENCOUNTER 2020-03-11 12:53 | Emergency (ER) | payer OTHER ==
[~2020-03-11] VITALS: Ht 170.2 cm; Wt 81.6 kg
[2020-03-11 13:00] VITALS: Ht 170.2 cm; Wt 81.6 kg
[2020-03-11 13:52] LABS: CALCIUM 8.4 mg/dL (8.5-10.1); CARBON DIOXIDE 23.2 mmol/L (21-32); CHLORIDE SERUM 103 mmol/L (98-107); CREATININE SERUM 1.1 mg/dL (0.6-1.0); GFR1 > 60 mL/min; GLUCOSE SERUM 84 mg/dL (74-106); POTASSIUM SERUM 3.5 mmol/L (3.5-5.1); SODIUM SERUM 137 mmol/L (136-145)
[2020-03-11 14:18] LABS: BASOPHIL % 0.6 % (0-2); PLATELET COUNT 260 x10^3mcL (130-400)
[2020-03-11 14:25] LABS: RED CELL DISTRIBUTION WIDTH 14.9 % (11.5-14.5)
[2020-03-11 15:03] VITALS: BP 121/74
== END 2020-03-11 15:03 | disposition home or self-care (01) ==
LOC: ED 12:53
PROVIDERS: Emergency Medicine
DX: J45.901 Unspecified asthma with (acute) exacerbation (principal); Z91.010 Allergy to peanuts; Z88.8 Allergy status to other drugs, medicaments and biological substances
CPT/HCPCS: J2930; J3475; J7613; Q0092

== ENCOUNTER 2020-03-19 00:02 | Emergency (ER) | payer OTHER ==
[~2020-03-19] VITALS: Ht 167.6 cm; Wt 92.1 kg
[2020-03-19 00:09] VITALS: Ht 167.6 cm; Wt 92.1 kg
[2020-03-19 02:39] VITALS: BP 119/70
== END 2020-03-19 02:39 | disposition home or self-care (01) ==
LOC: ED 00:02
DX: J45.901 Unspecified asthma with (acute) exacerbation (principal); R06.03 Acute respiratory distress; Z98.890 Other specified postprocedural states; Z88.8 Allergy status to other drugs, medicaments and biological substances; Z91.010 Allergy to peanuts
CPT/HCPCS: 36600; Q0092

== ENCOUNTER 2020-03-25 11:16 | Emergency (ER) | payer OTHER ==
[~2020-03-25] VITALS: Ht 165.1 cm; Wt 83.5 kg
[2020-03-25 11:27] VITALS: Ht 165.1 cm; Wt 83.5 kg
[2020-03-25 12:00] LABS: BASOPHIL % 0.8 % (0-2); PLATELET COUNT 261 x10^3mcL (130-400)
[2020-03-25 12:26] LABS: RED CELL DISTRIBUTION WIDTH 14.6 % (11.5-14.5)
[2020-03-25 12:34] LABS: CALCIUM 8.9 mg/dL (8.5-10.1); CARBON DIOXIDE 24.3 mmol/L (21-32); CHLORIDE SERUM 105 mmol/L (98-107); CREATININE SERUM 1.1 mg/dL (0.6-1.0); GFR1 > 60 mL/min; GLUCOSE SERUM 83 mg/dL (74-106); POTASSIUM SERUM 3.9 mmol/L (3.5-5.1); SODIUM SERUM 139 mmol/L (136-145)
[2020-03-25 12:42] LABS: ALBUMIN 3.4 g/dL (3.4-5.0); ALKALINE PHOSPHATASE 39 U/L (46-116); ALT/SGPT 18 U/L (14-59); AST/SGOT 12 U/L (15-37); BILIRUBIN TOTAL 0.38 mg/dL (0.20-1.00); TOTAL PROTEIN, SERUM 6.8 g/dL (6.4-8.2)
[2020-03-25 14:16] VITALS: BP 134/69
== END 2020-03-25 14:16 | disposition home or self-care (01) ==
LOC: ED 11:16
PROVIDERS: Emergency Medicine
DX: J45.901 Unspecified asthma with (acute) exacerbation (principal); Z91.010 Allergy to peanuts; Z88.8 Allergy status to other drugs, medicaments and biological substances
CPT/HCPCS: 83880; J0171; J2930; J7613; Q0092

== ENCOUNTER 2020-04-09 19:23 | Emergency (ER) | payer OTHER ==
[~2020-04-09] VITALS: Ht 165.1 cm; Wt 90.7 kg
[2020-04-09 19:34] VITALS: Ht 165.1 cm; Wt 90.7 kg
[2020-04-09 20:43] LABS: microscopic required? NO
[2020-04-09 20:51] LABS: urine erythrocyte NEGATIVE (NEGATIVE)
[2020-04-09 20:59] LABS: BASOPHIL % 0.9 % (0-2); PLATELET COUNT 265 x10^3mcL (130-400); RED CELL DISTRIBUTION WIDTH 14.9 % (11.5-14.5)
[2020-04-09 22:04] VITALS: BP 100/64
== END 2020-04-09 22:04 | disposition home or self-care (01) ==
LOC: ED 19:23
PROVIDERS: Emergency Medicine
DX: O26.891 Other specified pregnancy related conditions, first trimester (principal); R10.2 Pelvic and perineal pain; R11.0 Nausea; O99.511 Diseases of the respiratory system complicating pregnancy, first trimester; Z3A.00 Weeks of gestation of pregnancy not specified; Z98.890 Other specified postprocedural states; Z91.010 Allergy to peanuts; Z88.8 Allergy status to other drugs, medicaments and biological substances

== ENCOUNTER 2020-04-12 02:28 | Emergency (ER) | payer OTHER ==
[~2020-04-12] VITALS: Ht 167.6 cm; Wt 109.0 kg
[2020-04-12 02:34] VITALS: Ht 167.6 cm; Wt 109.0 kg
[2020-04-12 06:09] VITALS: BP 96/62
== END 2020-04-12 05:05 | disposition home or self-care (01) ==
LOC: ED 02:28
DX: O99.511 Diseases of the respiratory system complicating pregnancy, first trimester (principal); J45.901 Unspecified asthma with (acute) exacerbation; Z3A.01 Less than 8 weeks gestation of pregnancy; Z98.890 Other specified postprocedural states; Z91.010 Allergy to peanuts; Z88.8 Allergy status to other drugs, medicaments and biological substances

== ENCOUNTER 2020-06-22 20:32 | Emergency (ER) | payer OTHER ==
[~2020-06-22] VITALS: Ht 165.1 cm; Wt 89.4 kg
[2020-06-22 20:38] VITALS: Ht 165.1 cm; Wt 89.4 kg
[2020-06-22 21:22] LABS: CALCIUM 9.2 mg/dL (8.5-10.1); CARBON DIOXIDE 26.7 mmol/L (21-32); CHLORIDE SERUM 103 mmol/L (98-107); GFR1 > 60 mL/min; GLUCOSE SERUM 85 mg/dL (74-106); POTASSIUM SERUM 4.9 mmol/L (3.5-5.1); SODIUM SERUM 137 mmol/L (136-145)
[2020-06-22 21:27] LABS: ALBUMIN 3.4 g/dL (3.4-5.0); ALKALINE PHOSPHATASE 39 U/L (46-116); ALT/SGPT 21 U/L (14-59); AST/SGOT 23 U/L (15-37); BASOPHIL % 1.1 % (0-2); BILIRUBIN TOTAL 0.5 mg/dL (0.20-1.00); PLATELET COUNT 279 x10^3mcL (130-400); RED CELL DISTRIBUTION WIDTH 14.5 % (11.5-14.5); TOTAL PROTEIN, SERUM 7.4 g/dL (6.4-8.2)
[2020-06-22 23:11] VITALS: BP 106/68
== END 2020-06-22 23:11 | disposition home or self-care (01) ==
LOC: ED 20:32
PROVIDERS: Emergency Medicine
DX: J45.901 Unspecified asthma with (acute) exacerbation (principal); L30.9 Dermatitis, unspecified; Z91.010 Allergy to peanuts; Z88.8 Allergy status to other drugs, medicaments and biological substances
CPT/HCPCS: J1885; J2060; J2930; J3535; Q0092; U0003-CS